=== PATIENT | female | born 1980 | race Caucasian/White ===

== ENCOUNTER 2017-05-08 23:20 | Inpatient (IN) | payer BC ==
[2017-05-09] MEDS ORDERED: OBEPIDURAL* 250 ML ONE (02:48)
[2017-05-09 03:18] LABS: Hematocrit 37 % (35-47); Hemoglobin 12.4 g/dl (12.0-16.0); Mean Corpuscular HGB Conc 34 g/dl (31-36); Mean Corpuscular Hemoglobin 32 pg (27-31); Mean Corpuscular Volume 93 fL (80-97); Mean Platelet Volume 9 um3 (7.4-10.4); Red Blood Count 3.92 10^6/ul (4.0-5.4); Red Cell Distribution Width 13 % (10.5-15); White Blood Count 9.5 10^3/ul (3.5-10.8)
[2017-05-09] MEDS ORDERED: Sodium Citrate/Citric Acid* 15 ML UDC PO PRN (04:54)
[2017-05-09] MEDS ORDERED: Famotidine TAB* 20 MG PO PRN (04:54)
[2017-05-09] MEDS ORDERED: Phenylephrine IV* 40 MCG/ML 10 ML SYRINGE IV PUSH PRN (04:54)
[2017-05-09] MEDS ORDERED: OBEPIDURAL* 250 ML EPIDURAL SCH (05:00)
[2017-05-09] MEDS ORDERED: Oxytocin in LR* 20 UNITS/1,000 ML BAG IVPB ONE (06:01)
[2017-05-09] MEDS ORDERED: Dibucaine 1% 28.35 GM TUBE PR PRN (06:07)
[2017-05-09] MEDS ORDERED: Glycerin ADULT SUPP PR PRN (06:07)
[2017-05-09] MEDS ORDERED: Acetaminophen TAB* 325 MG PO PRN (06:07)
[2017-05-09] MEDS ORDERED: Witch Hazel PAD* JAR TOPICAL PRN (06:07)
[2017-05-09] MEDS ORDERED: Oxytocin in LR* 20 UNITS/1,000 ML BAG IVPB SCH (07:00)
[2017-05-09] MEDS: Ibuprofen TAB* 600 MG PO PRN ×3 (09:02→21:15)
[2017-05-09] MEDS: Simethicone CHEW TAB* 80 MG PO SCH (11:39)
[2017-05-09] MEDS: Docusate CAP* 100 MG PO SCH ×3 (11:39→20:19)
[2017-05-09] MEDS: oxyCODONE/Acetamin 5/325 MG* TAB PO PRN ×2 (16:14→20:19)
[2017-05-09 22:00] LABS: Total Bilirubin 0.4 mg/dL (0.2-1.0)
[2017-05-10] MEDS: oxyCODONE/Acetamin 5/325 MG* TAB PO PRN ×5 (02:46→20:05)
[2017-05-10] MEDS: Ibuprofen TAB* 600 MG PO PRN ×2 (04:50→16:16)
[2017-05-10 06:33] LABS: Hematocrit 30 % (35-47); Hemoglobin 10.3 g/dl (12.0-16.0); Mean Corpuscular HGB Conc 34 g/dl (31-36); Mean Corpuscular Hemoglobin 32 pg (27-31); Mean Corpuscular Volume 94 fL (80-97); Mean Platelet Volume 9 um3 (7.4-10.4); Red Cell Distribution Width 13 % (10.5-15); White Blood Count 9.3 10^3/ul (3.5-10.8)
[2017-05-10] MEDS: Simethicone CHEW TAB* 80 MG PO SCH ×2 (08:06→08:07)
[2017-05-10] MEDS: Docusate CAP* 100 MG PO SCH ×3 (08:23→20:06)
[2017-05-10] MEDS: Ferrous Gluconate TAB* 324 MG TAB PO SCH ×2 (08:23→20:05)
[2017-05-11] MEDS: Ibuprofen TAB* 600 MG PO PRN ×2 (00:13→08:18)
[2017-05-11] MEDS: oxyCODONE/Acetamin 5/325 MG* TAB PO PRN ×3 (00:13→08:19)
[2017-05-11 08:00] VITALS: BP 111/61
[2017-05-11] MEDS: Docusate CAP* 100 MG PO SCH (09:25)
== END 2017-05-11 12:46 | disposition home or self-care (01) | DRG 560 ==
LOC: MCHOBOUT 23:20 → MCHOB 05-09 02:05
PROVIDERS: ADMIT Obstetrics & Gynecology; ATTEND Midwife
PROC: 10E0XZZ Delivery of Products of Conception, External Approach (ICD-10-PCS; principal; 2017-05-09)
PROC: 4A1HXCZ Monitoring of Products of Conception, Cardiac Rate, External Approach (ICD-10-PCS; 2017-05-09)
DX: O69.81X0 Labor and delivery complicated by cord around neck, without compression, not applicable or unspecified (principal); O99.824 Streptococcus B carrier state complicating childbirth; Z3A.38 38 weeks gestation of pregnancy; Z37.0 Single live birth; Z88.6 Allergy status to analgesic agent
CPT/HCPCS: 36415; 82247; 84450; 84460; 85025; 86850; 86900; 86901; A9270-GY

== ENCOUNTER 2021-10-01 21:43 | Observation (INO) ==
[2021-10-01 23:30] LABS: ABS Basophils 0.1 10^3/ul (0-0.2); ABS Eosinophils 0.1 10^3/ul (0-0.6); ABS Lymphocytes 1.7 10^3/ul (1.0-4.8); ABS Monocytes 0.6 10^3/ul (0-0.8); ABS Neutrophils 3.2 10^3/ul (1.5-7.7); Eosinophil % 2.4 %; Hematocrit 32 % (35-47); Hemoglobin 10.5 g/dL (12.0-16.0); Lymphocyte % 29.7 %; Mean Corpuscular HGB Conc 33 g/dL (31-36); Mean Corpuscular Hemoglobin 27 pg (27-31); Mean Corpuscular Volume 81 fL (80-97); Mean Platelet Volume 8.8 fL (7.4-10.4); Platelet Count 184 10^3/uL (150-450); Red Blood Count 3.93 10^6 /uL (3.70-4.87); Red Cell Distribution Width 15 % (10-15); White Blood Count 5.7 10^3/uL (3.5-10.8)
[2021-10-01 23:48] LABS: ALT 10 U/L (7-52); AST 19 U/L (13-39); Albumin 4.3 g/dL (3.2-5.2); Albumin/Globulin Ratio 1.5 (1-3); Alkaline Phosphatase 54 U/L (35-149); Anion Gap 4 mmol/L (2-11); Blood Urea Nitrogen 10 mg/dL (6-24); C Reactive Protein 7.83 mg/L (<8.01); CO2 Carbon Dioxide 28 mmol/L (22-32); Calcium 9.4 mg/dL (8.6-10.3); Chloride 104 mmol/L (101-111); Globulin 2.9 g/dL (2-4); Glucose 89 mg/dL (70-100); Lipase 19 U/L (11.0-82.0); Potassium 4.1 mmol/L (3.5-5.0); Sodium 136 mmol/L (135-145); Total Protein 7.2 g/dL (6.4-8.9); eGFR CKD-EPI 105.5 (>60)
[2021-10-01 23:54] LABS: HCG Pregnancy < 0.60 mIU/mL
[2021-10-02] MEDS ORDERED: Morphine 4 MG/ML VIAL (1 ml) IV ONE ×2 (00:12→03:08)
[2021-10-02] MEDS ORDERED: Iohexol 300 (CONTRAST) 10 ML SDV IV ONE (00:18)
[2021-10-02] MEDS ORDERED: Thiamine 100 MG/ML 2 ml VIAL (200 mg) ONE (00:36)
[2021-10-02] MEDS ORDERED: NS 0.9% 1000 ml BAG 1,000 ML ONE (00:36)
[2021-10-02] MEDS: Thiamine 100 MG/ML 2 ml VIAL 100 MG, Folic Acid IV 1 MG, Multiple Vitamin IV ADULT 10 M... IV ONE ×2 (00:47→02:30)
[2021-10-02 01:33] LABS: Urine Appearance Clear; Urine Bilirubin Negative (Negative); Urine Blood Negative (Negative); Urine Color Yellow; Urine Glucose Negative (Negative); Urine Ketones Negative (Negative); Urine Nitrite Negative (Negative); Urine Protein Negative (Negative); Urine Urobilinogen Negative (Negative)
[2021-10-02 01:50] LABS: Urine Bacteria Absent (Absent); Urine Red Blood Cell Absent (Absent); Urine Squamous Epithelial Cell Present (Absent); Urine White Blood Cell Trace(0-5/hpf) (Absent)
[2021-10-02] MEDS ORDERED: Lactated Ringers 1000 ml BAG 1,000 ML IV ONE ×2 (03:08→04:17)
[2021-10-02] MEDS ORDERED: Diatrizoate Meg/Sod(CONTRAST) 30 ML ORAL.SOLN PO ONE ×2 (10:07→10:14)
[2021-10-02] MEDS: HYDROmorphone 0.5 MG/0.5 ML SYRINGE IV SLOW PU PRN ×4 (10:45→20:54)
[2021-10-02] MEDS ORDERED: Pantoprazole VIAL 40 MG VIAL IV SCH (11:00)
[2021-10-02] MEDS ORDERED: Midazolam 10 mg/10 ml VIAL 1 mg/ml 10 ml VIAL (10 mg) ONE (15:39)
[2021-10-02] MEDS ORDERED: diPHENhydraMINE IV 50 MG/ML 1 ml VIAL (BENADRYL) ONE (15:39)
[2021-10-02] MEDS ORDERED: fentaNYL 100 mcg/2 ml 50 MCG/ML VIAL ONE (15:39)
[2021-10-02] MEDS: Sucralfate 1 gm SUSP 1 GM/10 ML UDC PO SCH (20:46)
[2021-10-02] MEDS: Pantoprazole VIAL 40 MG VIAL IV SCH (20:54)
[2021-10-03] MEDS: HYDROmorphone 0.5 MG/0.5 ML SYRINGE IV SLOW PU PRN ×5 (00:01→20:08)
[2021-10-03] MEDS: Lactated Ringers 1000 ml BAG 1,000 ML IV SCH ×3 (04:09→22:02)
[2021-10-03] MEDS: Ondansetron 4 mg VIAL 2 MG/ML 2 ml VIAL IV PRN ×2 (05:45→09:31)
[2021-10-03 07:16] LABS: ABS Eosinophils 0.1 10^3/ul (0-0.6); ABS Lymphocytes 0.9 10^3/ul (1.0-4.8); ABS Monocytes 0.3 10^3/ul (0-0.8); ABS Neutrophils 4.7 10^3/ul (1.5-7.7); Eosinophil % 1.2 %; Hematocrit 31 % (35-47); Hemoglobin 10.2 g/dL (12.0-16.0); Lymphocyte % 14.4 %; Mean Corpuscular HGB Conc 33 g/dL (31-36); Mean Corpuscular Hemoglobin 27 pg (27-31); Mean Corpuscular Volume 81 fL (80-97); Mean Platelet Volume 9.2 fL (7.4-10.4); Platelet Count 154 10^3/uL (150-450); Red Blood Count 3.82 10^6 /uL (3.70-4.87); Red Cell Distribution Width 15 % (10-15)
[2021-10-03 07:25] LABS: Albumin 3.8 g/dL (3.2-5.2); Albumin/Globulin Ratio 1.5 (1-3); Calcium 9.1 mg/dL (8.6-10.3); Globulin 2.6 g/dL (2-4); Potassium 3.8 mmol/L (3.5-5.0); Total Bilirubin 0.6 mg/dL (0.2-1.0); Total Protein 6.4 g/dL (6.4-8.9); eGFR CKD-EPI 112.8 (>60)
[2021-10-03] MEDS: Pantoprazole VIAL 40 MG VIAL IV SCH ×2 (09:31→20:03)
[2021-10-03] MEDS: Sucralfate 1 gm SUSP 1 GM/10 ML UDC PO SCH ×4 (09:44→20:27)
[2021-10-03] MEDS ORDERED: oxyCODONE/Acetamin 5/325 mg TAB PO PRN (16:32)
[2021-10-03] MEDS: oxyCODONE/Acetamin 5/325 mg TAB PO PRN ×2 (17:18→22:06)
[2021-10-04] MEDS: oxyCODONE/Acetamin 5/325 mg TAB PO PRN ×3 (01:31→11:46)
[2021-10-04] MEDS: Lactated Ringers 1000 ml BAG 1,000 ML IV SCH (07:40)
[2021-10-04] MEDS: Pantoprazole VIAL 40 MG VIAL IV SCH (09:04)
[2021-10-04] MEDS: Sucralfate 1 gm SUSP 1 GM/10 ML UDC PO SCH ×2 (09:04→11:48)
[2021-10-04 11:23] VITALS: BP 111/57
[2021-10-05 23:30] LABS: Tissue Transglutaminase IgA Ab <1.2 U/mL
[2021-10-06 14:26] LABS: Immunoglobulin A 255 mg/dL (61 - 356)
[2021-10-08 10:52] LABS: Helicobacter pylori Result Not Detected; Specimen Source STOOL
== END 2021-10-04 14:45 | disposition home or self-care (01) ==
LOC: ED 21:43 → EDHOLD 21:43 → SSU 10-02 11:22
PROVIDERS: ADMIT Hospitalist; ATTEND Internal Medicine